=== PATIENT | male | born 1955 | race Caucasian/White ===

== ENCOUNTER → 2016-07-09 | Outpatient (CLI) | payer OTHER ==
[~2016-07-09] VITALS: Ht 175.3 cm; Wt 70.3 kg
[~2016-07-09] MED LIST: GLUC500T PO; HUMA100I3 SC; LIDOCAINE 2% INJ 100 MG/5 ML SDV (FOR ANES.) As Ordered ONE; MULTTAB23 PO; NICO21DI5 TD; NS 1,000 ML IV SCH; PRIN5TAB PO; PROPOFOL 200 MG/20 ML VIAL As Ordered ONE; TYLE325T5 PO
--- NOTE | 2016-07-09 09:39 | ROOR ---
Patient Name: Reinaldo Gipson Procedure Date: 07/09/2016 9:19 AM Date of : 1955 Age: 61 Room: M OPP Gender: Male Note Status: Finalized Procedure: Colonoscopy Indications: Screening for colorectal malignant neoplasm Providers: Niko SEVILLA MD Referring MD: 1. No Referring Physician 1. No Referring Physician, Admin. Requesting Provider: Medicines: Monitored Anesthesia Care Complications: No immediate complications. Procedure: Pre-Anesthesia Assessment: - The heart rate, respiratory rate, oxygen saturations, blood pressure, adequacy of pulmonary ventilation, and response to care were monitored throughout the procedure. The Colonoscope was introduced through the anus and advanced to the cecum, identified by appendiceal orifice and ileocecal valve. The colonoscopy was performed without difficulty. The patient tolerated the procedure well. The quality of the bowel preparation was adequate to identify polyps. Findings: The perianal and digital rectal examinations were normal. (EXAM: Complete, PREP:Adequate) Two sessile polyps were found at the splenic flexure. The polyps were diminutive in size. These polyps were removed with a cold snare. Resection and retrieval were complete. A diminutive polyp was found in the rectum. The polyp was sessile. The polyp was removed with a cold snare. Resection and retrieval were complete. Internal hemorrhoids were found during retroflexion. The hemorrhoids were moderate. The exam was otherwise without abnormality. Impression: - (EXAM: Complete, PREP:Adequate) - Two diminutive polyps at the splenic flexure, removed with a cold snare. Resected and retrieved. - One diminutive polyp in the rectum, removed with a cold snare. Resected and retrieved. - Internal hemorrhoids. - The examination was otherwise normal. Recommendation: - Telephone endoscopist for pathology results in 2 weeks. - If the pathology report reveals adenomatous tissue, then repeat the colonoscopy for surveillance of multiple adenomas in 3 years. Niko Sevilla MD Niko SEVILLA MD 07/09/2016 9:39:36 AM This report has been signed electronically. Number of Addenda: 0 Note Initiated On: 07/09/2016 9:19 AM Estimated Blood Loss: Estimated blood loss: none.
[2016-07-09 10:08] VITALS: BP 152/79
== END ==
LOC: M OPP 08:19
PROVIDERS: ATTEND Internal Medicine Gastroenterology
DX: Z12.11 Encounter for screening for malignant neoplasm of colon (principal); D12.3 Benign neoplasm of transverse colon; D12.8 Benign neoplasm of rectum; K64.0 First degree hemorrhoids; E11.9 Type 2 diabetes mellitus without complications; Z79.4 Long term (current) use of insulin; Z79.899 Other long term (current) drug therapy; F17.200 Nicotine dependence, unspecified, uncomplicated

== ENCOUNTER → 2017-01-18 | Outpatient (CLI) | payer OTHER ==
[~2017-01-18] MED LIST changes: +LIDO5DIS41 TD; -LIDOCAINE 2% INJ 100 MG/5 ML SDV (FOR ANES.) As Ordered ONE; -NS 1,000 ML IV SCH; -PROPOFOL 200 MG/20 ML VIAL As Ordered ONE
--- NOTE | 2017-01-19 03:00 | REP ---
Clinical: Pain. Technique: Internal rotation, external rotation, and Y view of the right shoulder. Findings: Mild/early moderate arthritic degenerative changes include cortical irregularity and subtle spurring at the acromioclavicular joint best identified on Y-view as well as subtle cortical irregularity involving the anteroinferior humeral head and blunting/heterogeneity to the glenoid rim. No acute fracture dislocation. No periarticular calcifications. Subacromial space normal. Impression: Mild/early moderate arthritic degenerative changes. Signed by Joel Travis MD 01/19/2017 02:51 A
--- NOTE | 2017-01-19 03:04 | REP ---
Clinical: Pain. Technique: AP, lateral, flexion/extension, bilateral oblique, and open mouth views of the cervical spine. Findings: Alignment and lordosis maintained. No acute fracture / compression injury or subluxation. Advanced degenerative disc osteophyte complex at the C5-6 and C6-7 levels include osteophytosis, endplate sclerosis and disc space narrowing. Oblique views demonstrate patent neural foramen. Open mouth view demonstrates normal C1-C2 articulation and odontoid process. Impression: Advanced degenerative changes at the C5-6 and C6-7 levels. Signed by Joel Travis MD 01/19/2017 02:56 A
== END ==
LOC: M WUC 09:57
PROVIDERS: ATTEND Physician Assistant
DX: M19.011 Primary osteoarthritis, right shoulder (principal); M50.322 Other cervical disc degeneration at C5-C6 level; M50.323 Other cervical disc degeneration at C6-C7 level

== ENCOUNTER → 2017-04-08 | Outpatient (CLI) | payer OTHER ==
[2017-04-08 15:10] LABS: ALBUMIN 3.8 GM/DL (3.2-5.2); ALBUMIN/GLOBULIN RATIO 1.27 (1.00-1.93); ALKALINE PHOSPHATASE 85 U/L (45-117); ALT/SGPT 25 U/L (12-78); ANION GAP 8 MEQ/L (8-16); AST/SGOT 15 U/L (15-37); BILIRUBIN,TOTAL 0.3 MG/DL (0.2-1.0); BLOOD UREA NITROGEN 11 MG/DL (7-18); CARBON DIOXIDE LEVEL 29 MEQ/L (21-32); CHLORIDE LEVEL 98 MEQ/L (98-107); CHOLESTEROL LEVEL 196 MG/DL (<200); CREATININE FOR GFR 0.78 MG/DL (0.70-1.30); GLOMERULAR FILTRATION RATE > 60.0 (>56); GLUCOSE, FASTING 206 MG/DL (70-105); POTASSIUM SERUM 3.8 MEQ/L (3.5-5.1); SODIUM LEVEL 135 MEQ/L (136-145); TOTAL PROTEIN 6.8 GM/DL (6.4-8.2); TRIGLYCERIDES LEVEL 90 MG/DL (<150)
== END ==
LOC: M LAB 12:06
PROVIDERS: ATTEND Family Medicine Addiction Medicine
DX: E11.9 Type 2 diabetes mellitus without complications (principal)

== ENCOUNTER 2017-04-16 09:40 | Emergency (ER) | payer OTHER ==
[~2017-04-16] VITALS: Ht 172.7 cm; Wt 72.7 kg
[~2017-04-16 09:40] MED LIST changes: -LIDO5DIS41 TD
[2017-04-16 11:06] LABS: BASO % 0.7 % (0.0-1.0); EOS # 0.2 10^3/uL (0.0-0.50); EOS % 3.3 % (0.0-3.0); IMMATURE GRANULOCYTE % 0.2 % (0-0); LYMPH # 1.7 10^3/uL (1.5-4.5); LYMPH % 28.8 % (24.0-44.0); MEAN CORPUSCULAR HEMOGLOBIN 32.8 pg (27.0-33.0); MEAN CORPUSCULAR HGB CONC 35.8 g/dl (32.0-36.5); MEAN CORPUSCULAR VOLUME 91.5 fl (80.0-96.0); MONO # 0.4 10^3/uL (0.0-0.8); MONO % 6.2 % (0.0-5.0); NEUTROPHILS # 3.7 10^3/uL (1.8-7.7); NEUTROPHILS % 60.8 % (36.0-66.0); PLATELET COUNT, AUTOMATED 257 10^3/uL (150-450); RED CELL DISTRIBUTION WIDTH 11.9 % (11.5-14.5)
[2017-04-16 11:23] LABS: ANION GAP 6 MEQ/L (8-16); BLOOD UREA NITROGEN 13 MG/DL (7-18); CALCIUM LEVEL 9.1 MG/DL (8.5-10.1); CARBON DIOXIDE LEVEL 29 MEQ/L (21-32); CHLORIDE LEVEL 101 MEQ/L (98-107); CREATININE FOR GFR 0.98 MG/DL (0.70-1.30); GLOMERULAR FILTRATION RATE > 60.0 (>56); GLUCOSE, FASTING 309 MG/DL (70-105); POTASSIUM SERUM 3.9 MEQ/L (3.5-5.1); SODIUM LEVEL 136 MEQ/L (136-145)
[2017-04-16 11:29] VITALS: BP 142/99
[2017-04-16] MEDS ORDERED: LIDO5DIS41 TD (11:37)
--- NOTE | 2017-04-16 11:49 | REP ---
LEFT RIB SERIES: Four views of the left ribs are performed. I see no fracture or bone lesion. An accompanying view of the chest demonstrates no acute infiltrate, pneumothorax or pleural effusion. The heart is normal in size. There is mild calcification of the thoracic aorta. IMPRESSION: Negative left rib series. Signed by Pan Jean MD 04/19/2017 09:48 A
--- NOTE | 2017-04-17 05:49 | ECGEPIP ---
Stationary ECG Study [facility] - ED Test Date: 2017-04-16 Pat Name: RAVEN ELIAS Department: Room: - Gender: M [employer]: gabe : 1955 Requested By: Anatoliy Curry Order Number: [id number] Reading MD: Anatoliy Jaramillo Measurements Intervals [place] Rate: 90 P: 59 RI: 142 QRS: 51 QRSD: 84 T: 50 QT: 345 QTc: 423 Interpretive Statements SINUS RHYTHM POOR R WAVE PROGRESSION SIMILAR TO 11/15/13 Electronically Signed On 04-17-2017 5:49:24 EDT by Anatoliy Jaramillo
== END 2017-04-16 11:54 | disposition home or self-care (01) ==
LOC: M ED 09:40
DX: R07.81 Pleurodynia (principal); E11.9 Type 2 diabetes mellitus without complications; F32.9 Major depressive disorder, single episode, unspecified; F17.200 Nicotine dependence, unspecified, uncomplicated; Z79.4 Long term (current) use of insulin

== ENCOUNTER → 2017-05-12 | Outpatient (REF) | payer OTHER ==
[~2017-05-12] MED LIST changes: +LIDO5DIS41 TD
== END ==
LOC: M LAB REF 12:35
PROVIDERS: ATTEND Nurse Practitioner Adult Health
DX: R07.89 Other chest pain (principal)

== ENCOUNTER → 2017-05-27 | Outpatient (CLI) | payer OTHER ==
--- NOTE | 2017-05-28 03:32 | REP ---
Clinical: Chest and rib pain. Findings: Bilateral lung brandt are well-aerated and relatively symmetric. The 3.2 mm noncalcified nodule along the periphery of the right lower lobe (image 72) is identified. No further significant nodule, mass lesion or consolidation. No pleural effusion/reaction or pneumothorax. Tracheobronchial tree is patent. Mediastinum demonstrates normal thoracic aorta and heart/pericardium. No obvious adenopathy. Skeletal structures are intact and there is no evidence for acute rib fracture or pathology. Age-related degenerative changes to the thoracic spine include anterior osteophytes with minimal endplate sclerosis. Alignment and kyphosis maintained and there is no evidence for acute fracture / compression injury. The sternum appears intact. Impression: 1. 3.2 mm noncalcified nodule along the periphery of the right lower lobe. While low-risk patient is would require no follow-up, high-risk patient is may warrant 9 to 12 month follow-up examination. 2. The osseous structures of the thorax including the ribs and sternum appear intact. Thoracic spine demonstrates mild age-related degenerative changes. Signed by Joel Travis MD 05/28/2017 03:24 A
== END ==
LOC: M RAD 18:13
PROVIDERS: ATTEND Nurse Practitioner Adult Health
DX: R91.1 Solitary pulmonary nodule (principal)

== ENCOUNTER 2017-08-13 03:21 | Emergency (ER) | payer OTHER ==
[2017-08-13] MEDS: CYCLOBENZAPRINE 10 MG TAB PO (05:13)
[2017-08-13] MEDS: NAPROXEN 250 MG TAB PO (05:13)
[2017-08-13] MEDS: traMADol 50 MG TAB (BULK 4 TAB ED) PO (05:13)
== END 2017-08-13 05:34 | disposition home or self-care (01) ==
LOC: M ED 03:21
DX: E11.9 Type 2 diabetes mellitus without complications (principal); F17.200 Nicotine dependence, unspecified, uncomplicated; M54.31 Sciatica, right side; Z79.4 Long term (current) use of insulin; Z79.899 Other long term (current) drug therapy
CPT/HCPCS: 99283

== ENCOUNTER → 2017-09-21 | Outpatient (CLI) | payer OTHER ==
[2017-09-21 06:37] LABS: ESTIMATED AVERAGE GLUCOSE 206 MG/DL (60-110); HEMOGLOBIN A1c 8.8 %
== END ==
LOC: M LAB 06:04
DX: E11.9 Type 2 diabetes mellitus without complications (principal)
CPT/HCPCS: 83036

== ENCOUNTER → 2019-03-29 | Outpatient (CLI) | payer OTHER ==
[~2019-03-29] MED LIST changes: +CYCL10TA PO; +CYMB60CA3 PO; +NAPR-885 PO; -NICO21DI5 TD; +NICO21DI6 TD
[2019-03-29 14:30] LABS: BASO # 0.1 10^3/uL (0.0-0.2); BASO % 0.9 % (0.0-1.0); EOS # 0.3 10^3/uL (0.0-0.5); EOS % 4.5 % (0.0-3.0); HEMATOCRIT 40.6 % (42.0-52.0); HEMOGLOBIN 14.7 g/dl (13.5-17.5); LYMPH # 1.6 10^3/uL (1.5-5.0); LYMPH % 28.7 % (24.0-44.0); MEAN CORPUSCULAR HEMOGLOBIN 34.4 pg (27.0-33.0); MEAN CORPUSCULAR HGB CONC 36.2 g/dl (32.0-36.5); MEAN CORPUSCULAR VOLUME 95.1 fl (80.0-96.0); MONO # 0.5 10^3/uL (0.0-0.8); MONO % 8.9 % (0.0-5.0); NEUTROPHILS # 3.1 10^3/uL (1.5-8.5); PLATELET COUNT, AUTOMATED 245 10^3/uL (150-450); RED BLOOD COUNT 4.27 10^6/uL (4.30-6.10); WHITE BLOOD COUNT 5.5 10^3/uL (4.0-10.0)
[2019-03-29 14:34] LABS: APPEARANCE, URINE CLEAR (CLEAR); BACTERIA, URINE AUTO NEGATIVE (NEGATIVE); BILIRUBIN, URINE AUTO NEGATIVE (NEGATIVE); BLOOD, URINE BLOOD NEGATIVE (NEGATIVE); COLOR, URINE YELLOW (YELLOW); GLUCOSE, URINE (UA) AUTO 3+ mg/dL (NEGATIVE); KETONE, URINE AUTO NEGATIVE (NEGATIVE); LEUKOCYTE ESTERASE, URINE AUTO NEGATIVE (NEGATIVE); MUCUS, URINE SMALL (NEGATIVE); NITRITE, URINE AUTO NEGATIVE (NEGATIVE); PROTEIN, URINE AUTO NEGATIVE (NEGATIVE); RBC, URINE AUTO 1 /HPF (0-3); SPECIFIC GRAVITY URINE AUTO 1.032 (1.002-1.035); SQUAMOUS EPITHELIAL CELL UR AU 0 /HPF (0-6); UROBILINOGEN, URINE AUTO 0.2 mg/dL (0.0-2.0); WBC, URINE AUTO 0 /HPF (0-3)
[2019-03-29 14:48] LABS: HEMOGLOBIN A1c 9.8 %
[2019-03-29 15:00] LABS: ALBUMIN 3.8 GM/DL (3.2-5.2); ALT/SGPT 20 U/L (12-78); BILIRUBIN,TOTAL 0.4 MG/DL (0.2-1.0); BLOOD UREA NITROGEN 14 MG/DL (7-18); CALCIUM LEVEL 8.9 MG/DL (8.8-10.2); CARBON DIOXIDE LEVEL 28 MEQ/L (21-32); CHLORIDE LEVEL 99 MEQ/L (98-107); CHOLESTEROL LEVEL 191 MG/DL (<200); CHOLESTEROL RISK RATIO 2.616 (<5); CREATININE FOR GFR 0.98 MG/DL (0.70-1.30); FREE T4 0.95 NG/DL (0.76-1.46); GLOMERULAR FILTRATION RATE > 60.0 (>49); GLUCOSE, FASTING 335 MG/DL (70-100); HDL CHOLESTEROL 73 MG/DL (>40); LDL CHOLESTEROL 99 MG/DL (<100); NON-HDL-C 118 MG/DL; POTASSIUM SERUM 4.5 MEQ/L (3.5-5.1); SODIUM LEVEL 134 MEQ/L (136-145); THYROID STIMULATING HORMONE 0.507 uIU/ML (0.358-3.740); TOTAL PROTEIN 6.6 GM/DL (6.4-8.2); TRIGLYCERIDES LEVEL 95 MG/DL (<150)
[2019-03-29 15:02] LABS: MALB URINE SIEMENS 36.6 MG/L; MAU/CREAT RATIO 93.8 MCG/MG (0.0-30.0)
[2019-03-29 15:03] LABS: TOTAL 25(OH) VITAMIN D 21.9 NG/ML (30.0-100.0)
[2019-03-31 00:07] LABS: Lyme Disease IgG/IgM Antibodie <0.91 ISR (0.00-0.90); Lyme Disease IgM Ab Quantitati <0.80 index (0.00-0.79)
== END ==
LOC: M LAB 13:28
PROVIDERS: ATTEND Family Medicine
DX: E11.9 Type 2 diabetes mellitus without complications (principal)
CPT/HCPCS: 36415; 80053; 80061; 81001; 82043; 82306; 83036; 84439; 84443; 85025; 86617; G0103

== ENCOUNTER 2019-08-14 23:13 | Emergency (ER) | payer OTHER, SELFPAY ==
[~2019-08-14] VITALS: Ht 172.7 cm; Wt 72.7 kg
[2019-08-14] MEDS ORDERED: TRAZ-252 PO (23:22)
[2019-08-15 00:09] LABS: HEMATOCRIT 40.7 % (42.0-52.0); HEMOGLOBIN 14.2 g/dl (13.5-17.5); MEAN CORPUSCULAR HEMOGLOBIN 33.4 pg (27.0-33.0); MEAN CORPUSCULAR HGB CONC 34.9 g/dl (32.0-36.5); MEAN CORPUSCULAR VOLUME 95.8 fl (80.0-96.0); PLATELET COUNT, AUTOMATED 242 10^3/uL (150-450); RED BLOOD COUNT 4.25 10^6/uL (4.30-6.10)
[2019-08-15 00:30] LABS: AMPHETAMINES LEVEL URINE NEGATIVE (NEGATIVE); BARBITURATES URINE NEGATIVE (NEGATIVE); BENZODIAZEPINES URINE NEGATIVE (NEGATIVE); CANNABINOIDS URINE NEGATIVE (NEGATIVE); COCAINE METABOLITE URINE NEGATIVE (NEGATIVE); METHADONE URINE NEGATIVE (NEGATIVE); OPIATES URINE NEGATIVE (NEGATIVE); PHENCYCLIDINE URINE NEGATIVE (NEGATIVE)
[2019-08-15 00:40] LABS: ACETAMINOPHEN LEVEL < 2.0 UG/ML (10.0-30.0); ALBUMIN 4.1 GM/DL (3.2-5.2); ALT/SGPT 26 U/L (12-78); BILIRUBIN,DIRECT 0.1 MG/DL (0.0-0.2); BILIRUBIN,TOTAL 0.3 MG/DL (0.2-1.0); BLOOD UREA NITROGEN 9 MG/DL (7-18); CALCIUM LEVEL 8.6 MG/DL (8.8-10.2); CARBON DIOXIDE LEVEL 29 MEQ/L (21-32); CHLORIDE LEVEL 103 MEQ/L (98-107); CREATININE FOR GFR 0.96 MG/DL (0.70-1.30); ETHYL ALCOHOL (ETHANOL) 0.208 % (0.000-0.010); GLOMERULAR FILTRATION RATE > 60.0 (>49); GLUCOSE, FASTING 376 MG/DL (70-100); POTASSIUM SERUM 4.4 MEQ/L (3.5-5.1); SALICYLATE LEVEL < 1.7 MG/DL (5.0-30.0); SODIUM LEVEL 138 MEQ/L (136-145); THYROID STIMULATING HORMONE 0.984 uIU/ML (0.358-3.740); TOTAL PROTEIN 7.1 GM/DL (6.4-8.2)
[2019-08-15 06:30] VITALS: BP 174/93
== END 2019-08-15 06:32 | disposition home or self-care (01) ==
LOC: M ED 23:13
DX: F10.220 Alcohol dependence with intoxication, uncomplicated (principal); Z63.4 Disappearance and death of family member; E10.9 Type 1 diabetes mellitus without complications; Z79.4 Long term (current) use of insulin; Z79.899 Other long term (current) drug therapy
CPT/HCPCS: 80048; 80076; 80307; 84443; 85027; 99284; G0480

== ENCOUNTER → 2019-08-23 | Outpatient (CLI) | payer OTHER ==
[~2019-08-23] MED LIST changes: +TRAZ-252 PO
[2019-08-23 15:50] LABS: ALBUMIN 3.7 GM/DL (3.2-5.2); ALT/SGPT 23 U/L (12-78); BILIRUBIN,TOTAL 0.3 MG/DL (0.2-1.0); BLOOD UREA NITROGEN 15 MG/DL (7-18); CALCIUM LEVEL 8.4 MG/DL (8.8-10.2); CARBON DIOXIDE LEVEL 28 MEQ/L (21-32); CHLORIDE LEVEL 101 MEQ/L (98-107); CREATININE FOR GFR 0.85 MG/DL (0.70-1.30); GLOMERULAR FILTRATION RATE > 60.0 (>49); GLUCOSE, FASTING 285 MG/DL (70-100); POTASSIUM SERUM 4.4 MEQ/L (3.5-5.1); SODIUM LEVEL 132 MEQ/L (136-145); TOTAL PROTEIN 6.2 GM/DL (6.4-8.2)
[2019-08-23 15:54] LABS: HEMOGLOBIN A1c 9.8 %
== END ==
LOC: M LAB 14:37
PROVIDERS: ATTEND Physician Assistant
DX: E11.9 Type 2 diabetes mellitus without complications (principal)

== ENCOUNTER → 2019-09-18 | Outpatient (CLI) | payer OTHER | LOC: M OUTALCOH 08:12 | PROVIDERS: ATTEND Psychiatry & Neurology Addiction Medicine | DX: F10.20 Alcohol dependence, uncomplicated (principal); F12.10 Cannabis abuse, uncomplicated ==

== ENCOUNTER 2019-09-22 15:32 | Outpatient (RCR) | payer OTHER | END 2019-09-26 | LOC: M OUTALCOH 15:32 | PROVIDERS: ATTEND Psychiatry & Neurology Addiction Medicine | DX: F10.20 Alcohol dependence, uncomplicated (principal); F12.10 Cannabis abuse, uncomplicated; Z72.0 Tobacco use ==

== ENCOUNTER → 2019-10-26 | Outpatient (RCR) | payer OTHER ==
[~2019-10-26] MED LIST changes: +CYCL-707 PO; -CYCL10TA PO
== END ==
LOC: M OUTALCOH 09-29 15:31
PROVIDERS: ATTEND Psychiatry & Neurology Psychiatry
DX: F10.20 Alcohol dependence, uncomplicated (principal); F12.10 Cannabis abuse, uncomplicated; Z72.0 Tobacco use

== ENCOUNTER 2019-11-23 08:00 | Outpatient (RCR) | payer OTHER | END 2019-11-26 | LOC: M OUTALCOH 08:00 | PROVIDERS: ATTEND Psychiatry & Neurology Addiction Medicine | DX: F10.20 Alcohol dependence, uncomplicated (principal); F12.10 Cannabis abuse, uncomplicated; Z72.0 Tobacco use ==

== ENCOUNTER 2019-12-25 13:10 | Outpatient (RCR) | payer OTHER | END 2019-12-26 | LOC: M OUTALCOH 13:10 | PROVIDERS: ATTEND Psychiatry & Neurology Addiction Medicine | DX: F10.20 Alcohol dependence, uncomplicated (principal); F12.10 Cannabis abuse, uncomplicated; Z72.0 Tobacco use ==

== ENCOUNTER 2020-01-22 16:00 | Outpatient (RCR) | payer OTHER | END 2020-01-26 | LOC: M OUTALCOH 16:00 | PROVIDERS: ATTEND Psychiatry & Neurology Addiction Medicine | DX: F10.20 Alcohol dependence, uncomplicated (principal); F12.10 Cannabis abuse, uncomplicated; Z72.0 Tobacco use ==

== ENCOUNTER → 2020-02-01 | Outpatient (REF) | payer OTHER ==
[2020-03-01 23:36] LABS: BASO % 0.6 % (0.0-1.0); EOS # 0.4 10^3/uL (0.0-0.5); EOS % 5.8 % (0.0-3.0); HEMATOCRIT 40.8 % (42.0-52.0); HEMOGLOBIN 14.1 g/dl (13.5-17.5); LYMPH # 1.3 10^3/uL (1.5-5.0); LYMPH % 21.3 % (24.0-44.0); MEAN CORPUSCULAR HEMOGLOBIN 32.8 pg (27.0-33.0); MEAN CORPUSCULAR HGB CONC 34.6 g/dl (32.0-36.5); MEAN CORPUSCULAR VOLUME 94.9 fl (80.0-96.0); MONO # 0.5 10^3/uL (0.0-0.8); MONO % 7.9 % (0.0-5.0); NEUTROPHILS % 64.2 % (36.0-66.0); PLATELET COUNT, AUTOMATED 250 10^3/uL (150-450); WHITE BLOOD COUNT 6.2 10^3/uL (4.0-10.0)
[2020-03-17 12:01] LABS: ALBUMIN 3.6 GM/DL (3.2-5.2); ALT/SGPT 26 U/L (12-78); BILIRUBIN,TOTAL 0.3 MG/DL (0.2-1.0); BLOOD UREA NITROGEN 16 MG/DL (7-18); CALCIUM LEVEL 9.1 MG/DL (8.8-10.2); CARBON DIOXIDE LEVEL 30 MEQ/L (21-32); CHLORIDE LEVEL 105 MEQ/L (98-107); CHOLESTEROL LEVEL 192 MG/DL (<200); CHOLESTEROL RISK RATIO 3.047 (<5); CREATININE FOR GFR 1.01 MG/DL (0.70-1.30); FREE T4 0.96 NG/DL (0.76-1.46); GLOMERULAR FILTRATION RATE > 60.0 (>49); GLUCOSE, FASTING 245 MG/DL (70-100); HDL CHOLESTEROL 63 MG/DL (>40); HEMOGLOBIN A1c 9.8 %; LDL CHOLESTEROL 121 MG/DL (<100); NON-HDL-C 129 MG/DL; POTASSIUM SERUM 4.6 MEQ/L (3.5-5.1); SODIUM LEVEL 140 MEQ/L (136-145); THYROID STIMULATING HORMONE 0.758 uIU/ML (0.358-3.740); TOTAL 25(OH) VITAMIN D 42.7 NG/ML (30.0-100.0); TOTAL PROTEIN 6.7 GM/DL (6.4-8.2); TRIGLYCERIDES LEVEL 38 MG/DL (<150)
== END ==
LOC: M LAB REF 15:10
PROVIDERS: ATTEND Nurse Practitioner Family
DX: I10 Essential (primary) hypertension (principal); E11.9 Type 2 diabetes mellitus without complications; G47.00 Insomnia, unspecified; Z72.0 Tobacco use; Z13.9 Encounter for screening, unspecified

== ENCOUNTER 2020-02-23 14:54 | Outpatient (RCR) | payer OTHER | END 2020-02-26 | LOC: M OUTALCOH 14:54 | PROVIDERS: ATTEND Psychiatry & Neurology Addiction Medicine | DX: F10.20 Alcohol dependence, uncomplicated (principal); F12.10 Cannabis abuse, uncomplicated; Z72.0 Tobacco use ==

== ENCOUNTER → 2020-03-27 | Outpatient (RCR) | payer OTHER | LOC: M OUTALCOH 03-06 10:27 | PROVIDERS: ATTEND Psychiatry & Neurology Addiction Medicine | DX: F10.20 Alcohol dependence, uncomplicated (principal); F12.10 Cannabis abuse, uncomplicated; Z72.0 Tobacco use ==

== ENCOUNTER 2020-04-26 15:10 | Outpatient (RCR) | payer OTHER | END 2020-04-27 | LOC: M OUTALCOH 15:10 | PROVIDERS: ATTEND Psychiatry & Neurology Addiction Medicine | DX: F10.20 Alcohol dependence, uncomplicated (principal); F12.10 Cannabis abuse, uncomplicated; Z72.0 Tobacco use ==

== ENCOUNTER → 2020-05-01 | Outpatient (CLI) | payer OTHER ==
--- NOTE | 2020-05-01 19:03 | REP ---
INDICATION: SOLITARY NODULE OF LUNG, NICOTINE DEPENDENCE. COMPARISON: 05/27/2017 TECHNIQUE: Axial noncontrast images from the thoracic inlet to the upper abdomen using low-dose lung screening technique (LDCT). As per the protocol only lung window images were sent to the read station for interpretation. FINDINGS: The 5 mm sized nodule seen previously in the right lower lobe now measures 7 mm. No new abnormal nodules, masses, or opacities have developed. There are no pleural or pericardial effusions. Grossly, the imaged upper abdomen and imaged osseous structures are unchanged. Grossly the mediastinum and pulmonary danielle are unchanged. IMPRESSION: The nodule in the right lower lobe, as described above, has increased in size. CT-PET is warranted. <Electronically signed by Austin Ellison > 05/01/20 [id number]
== END ==
LOC: M RAD 18:33
PROVIDERS: ATTEND Nurse Practitioner Family
DX: R91.1 Solitary pulmonary nodule (principal); F17.200 Nicotine dependence, unspecified, uncomplicated; Z72.0 Tobacco use

== ENCOUNTER 2020-05-09 15:06 | Outpatient (RCR) | payer OTHER | END 2020-05-27 | LOC: M OUTALCOH 15:06 | PROVIDERS: ATTEND Psychiatry & Neurology Addiction Medicine | DX: F10.20 Alcohol dependence, uncomplicated (principal); F12.10 Cannabis abuse, uncomplicated; Z72.0 Tobacco use ==

== ENCOUNTER → 2020-05-09 | Outpatient (CLI) | payer OTHER | LOC: M PLALAB 11:33 | PROVIDERS: ATTEND Psychiatry & Neurology Addiction Medicine | DX: F10.10 Alcohol abuse, uncomplicated (principal) ==

== ENCOUNTER → 2020-06-11 | Outpatient (CLI) | payer OTHER ==
[2020-06-11 08:15] LABS: BASO % 0.5 % (0.0-1.0); EOS # 0.3 10^3/uL (0.0-0.5); EOS % 4.9 % (0.0-3.0); HEMATOCRIT 39.8 % (42.0-52.0); HEMOGLOBIN 13.4 g/dl (13.5-17.5); LYMPH # 1.1 10^3/uL (1.5-5.0); LYMPH % 19.3 % (24.0-44.0); MEAN CORPUSCULAR HEMOGLOBIN 31.3 pg (27.0-33.0); MEAN CORPUSCULAR HGB CONC 33.7 g/dl (32.0-36.5); MONO # 0.4 10^3/uL (0.0-0.8); MONO % 7.3 % (0.0-5.0); NEUTROPHILS # 3.9 10^3/uL (1.5-8.5); NEUTROPHILS % 67.7 % (36.0-66.0); PLATELET COUNT, AUTOMATED 250 10^3/uL (150-450); RED BLOOD COUNT 4.28 10^6/uL (4.30-6.10); WHITE BLOOD COUNT 5.8 10^3/uL (4.0-10.0)
[2020-06-11 08:47] LABS: ALBUMIN 3.5 GM/DL (3.2-5.2); ALT/SGPT 25 U/L (12-78); BILIRUBIN,TOTAL 0.4 MG/DL (0.2-1.0); BLOOD UREA NITROGEN 13 MG/DL (7-18); CALCIUM LEVEL 8.4 MG/DL (8.8-10.2); CARBON DIOXIDE LEVEL 29 MEQ/L (21-32); CHLORIDE LEVEL 100 MEQ/L (98-107); CHOLESTEROL LEVEL 199 MG/DL (<200); CHOLESTEROL RISK RATIO 3.061 (<5); CREATININE FOR GFR 0.97 MG/DL (0.70-1.30); FREE T4 1.19 NG/DL (0.76-1.46); GLOMERULAR FILTRATION RATE > 60.0 (>49); GLUCOSE, FASTING 335 MG/DL (70-100); HDL CHOLESTEROL 65 MG/DL (>40); LDL CHOLESTEROL 122 MG/DL (<100); NON-HDL-C 134 MG/DL; SODIUM LEVEL 135 MEQ/L (136-145); TOTAL PROTEIN 6.4 GM/DL (6.4-8.2); TRIGLYCERIDES LEVEL 59 MG/DL (<150)
[2020-06-11 09:42] LABS: TOTAL 25(OH) VITAMIN D 32.5 NG/ML (30.0-100.0)
[2020-06-11 11:18] LABS: HEMOGLOBIN A1c 8.7 %
== END ==
LOC: M LAB 07:40
PROVIDERS: ATTEND Nurse Practitioner Family
DX: E11.40 Type 2 diabetes mellitus with diabetic neuropathy, unspecified (principal)

== ENCOUNTER → 2021-10-15 | Outpatient (CLI) | payer OTHER ==
[~2021-10-15] MED LIST changes: -CYMB60CA3 PO; +CYMB60CA4 PO
== END ==
LOC: M RAD 13:54
PROVIDERS: ATTEND Internal Medicine Pulmonary Disease
DX: R91.8 Other nonspecific abnormal finding of lung field (principal)

== ENCOUNTER → 2023-04-05 | Outpatient (REF) | payer MEDICARE, OTHER ==
[2023-04-06 12:55] LABS: CREATININE, URINE 42.4 MG/DL; CREATININE,RANDOM URINE 42.4 MG/DL; MAU/CREAT RATIO 25.9 MCG/MG (0.0-30.0)
== END ==
LOC: M LAB REF 11:44
PROVIDERS: ATTEND Nurse Practitioner Family
DX: E11.65 Type 2 diabetes mellitus with hyperglycemia (principal)

== ENCOUNTER → 2023-05-17 | Outpatient (REF) | payer OTHER ==
[2023-05-17 13:56] LABS: BASO # 0.1 10^3/uL (0.0-0.2); BASO % 0.5 % (0.0-1.0); EOS # 0.1 10^3/uL (0.0-0.5); EOS % 0.9 % (0.0-3.0); HEMATOCRIT 39.6 % (42.0-52.0); HEMOGLOBIN 13.7 g/dl (13.5-17.5); LYMPH # 1.4 10^3/uL (1.5-5.0); LYMPH % 15.4 % (24.0-44.0); MEAN CORPUSCULAR HEMOGLOBIN 32.2 pg (27.0-33.0); MEAN CORPUSCULAR HGB CONC 34.6 g/dl (32.0-36.5); MONO # 0.4 10^3/uL (0.0-0.8); MONO % 4.6 % (2.0-8.0); NEUTROPHILS # 7.3 10^3/uL (1.5-8.5); NEUTROPHILS % 78.4 % (36.0-66.0); PLATELET COUNT, AUTOMATED 265 10^3/uL (150-450); RED BLOOD COUNT 4.26 10^6/uL (4.30-6.10); WHITE BLOOD COUNT 9.3 10^3/uL (4.0-10.0)
[2023-05-17 14:07] LABS: HEMOGLOBIN A1c 9.1 % (4.0-6.0)
[2023-05-17 14:28] LABS: THYROID STIMULATING HORMONE 0.492 uIU/ML (0.55-4.78)
[2023-05-17 14:29] LABS: ALKALINE PHOSPHATASE 88 U/L (46-116); ALT/SGPT 46 U/L (7.0-40); AST/SGOT 33 U/L (<34); BILIRUBIN,TOTAL 0.7 MG/DL (0.3-1.2); BLOOD UREA NITROGEN 24 MG/DL (9-23); CALCIUM LEVEL 9.2 MG/DL (8.3-10.6); CARBON DIOXIDE LEVEL 28 MMOL/L (20-31); CHLORIDE LEVEL 102 MMOL/L (98-107); CHOLESTEROL LEVEL 146 MG/DL (<200); CHOLESTEROL RISK RATIO 2.23 (<5); CREATININE FOR GFR 0.95 MG/DL (0.70-1.30); GLOMERULAR FILTRATION RATE > 60.0 (>49); GLUCOSE, FASTING 157 MG/DL (74-106); HDL CHOLESTEROL 65.4 MG/DL (>40); LDL CHOLESTEROL 70.6 MG/DL (<100); MAGNESIUM LEVEL 1.9 MG/DL (1.8-2.4); NON-HDL-C 80.6 MG/DL; POTASSIUM SERUM 4.3 MMOL/L (3.5-5.1); SODIUM LEVEL 138 MMOL/L (136-145); TOTAL 25(OH) VITAMIN D 50.5 NG/ML (20.0-100.0); TOTAL PROTEIN 6.8 G/DL (5.7-8.2); TRIGLYCERIDES LEVEL 50 MG/DL (<150)
== END ==
LOC: M LAB REF 12:55
PROVIDERS: ATTEND Nurse Practitioner Family
DX: Z13.228 Encounter for screening for other metabolic disorders (principal)

== ENCOUNTER → 2023-09-29 | Outpatient (CLI) | payer MEDICARE ==
[2023-09-29 13:24] LABS: BASO % 0.6 % (0.0-1.0); EOS # 0.2 10^3/uL (0.0-0.5); EOS % 3.4 % (0.0-3.0); HEMATOCRIT 38.4 % (42.0-52.0); HEMOGLOBIN 13.6 g/dl (13.5-17.5); LYMPH # 1.6 10^3/uL (1.5-5.0); LYMPH % 23.1 % (24.0-44.0); MEAN CORPUSCULAR HGB CONC 35.4 g/dl (32.0-36.5); MEAN CORPUSCULAR VOLUME 90.4 fl (80.0-96.0); MONO # 0.5 10^3/uL (0.0-0.8); MONO % 7.8 % (2.0-8.0); NEUTROPHILS # 4.5 10^3/uL (1.5-8.5); NEUTROPHILS % 64.8 % (36.0-66.0); PLATELET COUNT, AUTOMATED 225 10^3/uL (150-450); RED BLOOD COUNT 4.25 10^6/uL (4.30-6.10)
[2023-09-29 13:53] LABS: ALBUMIN 3.7 G/DL (3.2-5.2); ALKALINE PHOSPHATASE 75 U/L (46-116); ALT/SGPT 29 U/L (7.0-40); AST/SGOT 23 U/L (<34); BILIRUBIN,TOTAL 0.6 MG/DL (0.3-1.2); BLOOD UREA NITROGEN 9 MG/DL (9-23); CALCIUM LEVEL 8.7 MG/DL (8.3-10.6); CARBON DIOXIDE LEVEL 28 MMOL/L (20-31); CHLORIDE LEVEL 108 MMOL/L (98-107); CHOLESTEROL LEVEL 100 MG/DL (<200); CHOLESTEROL RISK RATIO 2.07 (<5); CREATININE FOR GFR 0.79 MG/DL (0.70-1.30); GLOMERULAR FILTRATION RATE > 60.0 (>49); GLUCOSE, FASTING 68 MG/DL (74-106); HDL CHOLESTEROL 48.3 MG/DL (>40); LDL CHOLESTEROL 45.7 MG/DL (<100); NON-HDL-C 51.7 MG/DL; SODIUM LEVEL 142 MMOL/L (136-145); TOTAL PROTEIN 6.1 G/DL (5.7-8.2); TRIGLYCERIDES LEVEL 30 MG/DL (<150)
== END ==
LOC: M LAB 12:03
PROVIDERS: ATTEND Registered Nurse
DX: E11.69 Type 2 diabetes mellitus with other specified complication (principal); E78.2 Mixed hyperlipidemia; I10 Essential (primary) hypertension

== ENCOUNTER → 2025-03-14 | Outpatient (CLI) | payer MEDICARE ==
[~2025-03-14] MED LIST changes: +ACET-861 PO; +AMLO1TAB24 PO; +ATOR1TAB21 PO; +KETO-204 PO; +LIDO1ADH93 TD; -LIDO5DIS41 TD; +METH-1164 PO; +TRAZ-257 PO
[2025-03-14 10:20] LABS: BASO # 0.1 10^3/uL (0.0-0.2); BASO % 0.8 % (0.0-1.0); EOS # 0.4 10^3/uL (0.0-0.5); EOS % 6.6 % (0.0-3.0); LYMPH # 1.3 10^3/uL (1.5-5.0); LYMPH % 20.2 % (24.0-44.0); MONO # 0.5 10^3/uL (0.0-0.8); MONO % 8.3 % (2.0-8.0); NEUTROPHILS # 4.1 10^3/uL (1.5-8.5); NEUTROPHILS % 63.9 % (36.0-66.0); PLATELET COUNT, AUTOMATED 244 10^3/uL (150-450)
[2025-03-14 10:33] LABS: ESTIMATED AVERAGE GLUCOSE 240.0 MG/DL (60-110)
[2025-03-14 10:52] LABS: CREATININE, URINE 70.6 MG/DL
[2025-03-14 10:53] LABS: MALB URINE SIEMENS 16.0 MG/L; MAU/CREAT RATIO 22.6 MCG/MG (0.0-30.0)
[2025-03-14 10:55] LABS: ALT/SGPT 55 U/L (7.0-40); AST/SGOT 46 U/L (<34); CALCIUM LEVEL 9.0 MG/DL (8.3-10.6); CARBON DIOXIDE LEVEL 31 MMOL/L (20-31); CHLORIDE LEVEL 103 MMOL/L (98-107); CHOLESTEROL LEVEL 133 MG/DL (<200); CHOLESTEROL RISK RATIO 2.45 (<5); CREATININE FOR GFR 0.87 MG/DL (0.70-1.30); GLOMERULAR FILTRATION RATE > 90.0 (>49); LDL CHOLESTEROL 65.7 MG/DL (<100); NON-HDL-C 78.9 MG/DL; POTASSIUM SERUM 4.1 MMOL/L (3.5-5.1); SODIUM LEVEL 142 MMOL/L (136-145); TRIGLYCERIDES LEVEL 66 MG/DL (<150)
== END ==
LOC: M LAB 08:41
PROVIDERS: ATTEND Registered Nurse
DX: E11.69 Type 2 diabetes mellitus with other specified complication (principal); E78.2 Mixed hyperlipidemia